=== PATIENT | female | born 1945 | race Caucasian/White ===

== ENCOUNTER → 2019-01-26 | Outpatient (CLI) | payer MEDICARE, BC | LOC: M.WC 09:42 | DX: T81.89XA Other complications of procedures, not elsewhere classified, initial encounter (principal); L89.893 Pressure ulcer of other site, stage 3; E03.9 Hypothyroidism, unspecified; I10 Essential (primary) hypertension; I25.10 Atherosclerotic heart disease of native coronary artery without angina pectoris; I25.2 Old myocardial infarction; J44.9 Chronic obstructive pulmonary disease, unspecified; Z87.891 Personal history of nicotine dependence; Y92.89 Other specified places as the place of occurrence of the external cause; Y83.8 Other surgical procedures as the cause of abnormal reaction of the patient, or of later complication, without mention of misadventure at the time of the procedure; Z95.5 Presence of coronary angioplasty implant and graft; Z79.82 Long term (current) use of aspirin ==

== ENCOUNTER → 2019-02-02 | Outpatient (CLI) | payer MEDICARE, BC | LOC: M.WC 05:14 | DX: T81.89XD Other complications of procedures, not elsewhere classified, subsequent encounter (principal); L89.892 Pressure ulcer of other site, stage 2; E03.9 Hypothyroidism, unspecified; I10 Essential (primary) hypertension; I25.2 Old myocardial infarction; I25.10 Atherosclerotic heart disease of native coronary artery without angina pectoris; J44.9 Chronic obstructive pulmonary disease, unspecified; Z87.891 Personal history of nicotine dependence; Z95.1 Presence of aortocoronary bypass graft; Z79.82 Long term (current) use of aspirin; Y83.8 Other surgical procedures as the cause of abnormal reaction of the patient, or of later complication, without mention of misadventure at the time of the procedure ==

== ENCOUNTER → 2019-02-05 | Outpatient (CLI) | payer MEDICARE, BC | LOC: M.WC 04:39 | DX: T81.89XD Other complications of procedures, not elsewhere classified, subsequent encounter (principal); L89.892 Pressure ulcer of other site, stage 2; E03.9 Hypothyroidism, unspecified; I10 Essential (primary) hypertension; I25.2 Old myocardial infarction; I25.10 Atherosclerotic heart disease of native coronary artery without angina pectoris; J44.9 Chronic obstructive pulmonary disease, unspecified; Z87.891 Personal history of nicotine dependence; Z95.5 Presence of coronary angioplasty implant and graft; Z79.82 Long term (current) use of aspirin; Y83.8 Other surgical procedures as the cause of abnormal reaction of the patient, or of later complication, without mention of misadventure at the time of the procedure ==

== ENCOUNTER → 2019-02-12 | Outpatient (CLI) | payer MEDICARE, BC | LOC: M.WC 01:34 | DX: T81.89XD Other complications of procedures, not elsewhere classified, subsequent encounter (principal); I83.015 Varicose veins of right lower extremity with ulcer other part of foot; L89.892 Pressure ulcer of other site, stage 2; L97.511 Non-pressure chronic ulcer of other part of right foot limited to breakdown of skin; L03.115 Cellulitis of right lower limb; E03.9 Hypothyroidism, unspecified; I10 Essential (primary) hypertension; I25.2 Old myocardial infarction; I25.10 Atherosclerotic heart disease of native coronary artery without angina pectoris; J44.9 Chronic obstructive pulmonary disease, unspecified; Y83.8 Other surgical procedures as the cause of abnormal reaction of the patient, or of later complication, without mention of misadventure at the time of the procedure; Z87.891 Personal history of nicotine dependence ==

== ENCOUNTER → 2019-02-15 | Outpatient (CLI) | payer MEDICARE, BC | LOC: M.WC 05:03 | DX: T81.89XD Other complications of procedures, not elsewhere classified, subsequent encounter (principal); I83.015 Varicose veins of right lower extremity with ulcer other part of foot; L89.892 Pressure ulcer of other site, stage 2; L03.115 Cellulitis of right lower limb; E03.9 Hypothyroidism, unspecified; I10 Essential (primary) hypertension; I25.2 Old myocardial infarction; I25.10 Atherosclerotic heart disease of native coronary artery without angina pectoris; J44.9 Chronic obstructive pulmonary disease, unspecified; Z87.891 Personal history of nicotine dependence; Y83.8 Other surgical procedures as the cause of abnormal reaction of the patient, or of later complication, without mention of misadventure at the time of the procedure ==

== ENCOUNTER → 2019-02-22 | Outpatient (CLI) | payer MEDICARE, BC | LOC: M.WC 05:28 | DX: T81.89XD Other complications of procedures, not elsewhere classified, subsequent encounter (principal); L89.892 Pressure ulcer of other site, stage 2; L84 Corns and callosities; I10 Essential (primary) hypertension; E03.9 Hypothyroidism, unspecified; I25.2 Old myocardial infarction; I25.10 Atherosclerotic heart disease of native coronary artery without angina pectoris; J44.9 Chronic obstructive pulmonary disease, unspecified; Z87.891 Personal history of nicotine dependence; Y83.8 Other surgical procedures as the cause of abnormal reaction of the patient, or of later complication, without mention of misadventure at the time of the procedure ==

== ENCOUNTER → 2019-03-01 | Outpatient (CLI) | payer MEDICARE, BC | LOC: M.WC 04:53 | DX: T81.89XD Other complications of procedures, not elsewhere classified, subsequent encounter (principal); I83.015 Varicose veins of right lower extremity with ulcer other part of foot; L89.892 Pressure ulcer of other site, stage 2; L97.512 Non-pressure chronic ulcer of other part of right foot with fat layer exposed; E03.9 Hypothyroidism, unspecified; I10 Essential (primary) hypertension; I25.2 Old myocardial infarction; I25.10 Atherosclerotic heart disease of native coronary artery without angina pectoris; J44.9 Chronic obstructive pulmonary disease, unspecified; Z87.891 Personal history of nicotine dependence; Y83.8 Other surgical procedures as the cause of abnormal reaction of the patient, or of later complication, without mention of misadventure at the time of the procedure ==

== ENCOUNTER → 2019-03-08 | Outpatient (CLI) | payer OTHER, MEDICARE | LOC: M.WC 01:52 | DX: T81.89XD Other complications of procedures, not elsewhere classified, subsequent encounter (principal); I83.015 Varicose veins of right lower extremity with ulcer other part of foot; L89.892 Pressure ulcer of other site, stage 2; L97.512 Non-pressure chronic ulcer of other part of right foot with fat layer exposed; E03.9 Hypothyroidism, unspecified; I10 Essential (primary) hypertension; I25.2 Old myocardial infarction; I25.10 Atherosclerotic heart disease of native coronary artery without angina pectoris; J44.9 Chronic obstructive pulmonary disease, unspecified; Z87.891 Personal history of nicotine dependence; Y83.8 Other surgical procedures as the cause of abnormal reaction of the patient, or of later complication, without mention of misadventure at the time of the procedure ==

== ENCOUNTER → 2019-03-15 | Outpatient (CLI) | payer MEDICARE, BC | LOC: M.WC 10:24 | DX: T81.89XD Other complications of procedures, not elsewhere classified, subsequent encounter (principal); L89.890 Pressure ulcer of other site, unstageable; S90.811A Abrasion, right foot, initial encounter; I83.90 Asymptomatic varicose veins of unspecified lower extremity; I10 Essential (primary) hypertension; I25.2 Old myocardial infarction; I25.10 Atherosclerotic heart disease of native coronary artery without angina pectoris; E03.9 Hypothyroidism, unspecified; J44.9 Chronic obstructive pulmonary disease, unspecified; Z87.891 Personal history of nicotine dependence; V89.2XXA Person injured in unspecified motor-vehicle accident, traffic, initial encounter; Y93.89 Activity, other specified; Y92.89 Other specified places as the place of occurrence of the external cause; Y99.8 Other external cause status; Y83.8 Other surgical procedures as the cause of abnormal reaction of the patient, or of later complication, without mention of misadventure at the time of the procedure ==

== ENCOUNTER → 2019-03-22 | Outpatient (CLI) | payer MEDICARE, BC | LOC: M.WC 04:07 | DX: T81.89XD Other complications of procedures, not elsewhere classified, subsequent encounter (principal); S90.811D Abrasion, right foot, subsequent encounter; L89.890 Pressure ulcer of other site, unstageable; I83.90 Asymptomatic varicose veins of unspecified lower extremity; E03.9 Hypothyroidism, unspecified; I10 Essential (primary) hypertension; I25.2 Old myocardial infarction; I25.10 Atherosclerotic heart disease of native coronary artery without angina pectoris; J44.9 Chronic obstructive pulmonary disease, unspecified; Z87.891 Personal history of nicotine dependence; V89.2XXD Person injured in unspecified motor-vehicle accident, traffic, subsequent encounter; Y83.8 Other surgical procedures as the cause of abnormal reaction of the patient, or of later complication, without mention of misadventure at the time of the procedure ==

== ENCOUNTER → 2019-03-29 | Outpatient (CLI) | payer MEDICARE, BC | LOC: M.WC 01:52 | DX: T81.89XD Other complications of procedures, not elsewhere classified, subsequent encounter (principal); L89.892 Pressure ulcer of other site, stage 2; I83.90 Asymptomatic varicose veins of unspecified lower extremity; E03.9 Hypothyroidism, unspecified; I10 Essential (primary) hypertension; I25.2 Old myocardial infarction; I25.10 Atherosclerotic heart disease of native coronary artery without angina pectoris; J44.9 Chronic obstructive pulmonary disease, unspecified; Z87.891 Personal history of nicotine dependence; Y83.8 Other surgical procedures as the cause of abnormal reaction of the patient, or of later complication, without mention of misadventure at the time of the procedure ==

== ENCOUNTER → 2019-04-05 | Outpatient (CLI) | payer MEDICARE, BC | LOC: M.WC 04:12 | DX: T81.89XD Other complications of procedures, not elsewhere classified, subsequent encounter (principal); L89.892 Pressure ulcer of other site, stage 2; I83.90 Asymptomatic varicose veins of unspecified lower extremity; E03.9 Hypothyroidism, unspecified; I10 Essential (primary) hypertension; I25.10 Atherosclerotic heart disease of native coronary artery without angina pectoris; I25.2 Old myocardial infarction; J44.9 Chronic obstructive pulmonary disease, unspecified; Z87.891 Personal history of nicotine dependence; Y83.8 Other surgical procedures as the cause of abnormal reaction of the patient, or of later complication, without mention of misadventure at the time of the procedure ==

== ENCOUNTER → 2019-04-12 | Outpatient (CLI) | payer MEDICARE, BC | LOC: M.WC 04:23 | DX: T81.89XD Other complications of procedures, not elsewhere classified, subsequent encounter (principal); L89.892 Pressure ulcer of other site, stage 2; I83.90 Asymptomatic varicose veins of unspecified lower extremity; E03.9 Hypothyroidism, unspecified; I25.10 Atherosclerotic heart disease of native coronary artery without angina pectoris; I25.2 Old myocardial infarction; I10 Essential (primary) hypertension; J44.9 Chronic obstructive pulmonary disease, unspecified; Z87.891 Personal history of nicotine dependence; Y83.8 Other surgical procedures as the cause of abnormal reaction of the patient, or of later complication, without mention of misadventure at the time of the procedure ==

== ENCOUNTER → 2019-04-19 | Outpatient (CLI) | payer MEDICARE, BC | LOC: M.WC 04:36 | DX: T81.89XD Other complications of procedures, not elsewhere classified, subsequent encounter (principal); L89.892 Pressure ulcer of other site, stage 2; I10 Essential (primary) hypertension; I83.90 Asymptomatic varicose veins of unspecified lower extremity; E03.9 Hypothyroidism, unspecified; I25.2 Old myocardial infarction; I25.10 Atherosclerotic heart disease of native coronary artery without angina pectoris; J44.9 Chronic obstructive pulmonary disease, unspecified; Z87.891 Personal history of nicotine dependence; Y83.8 Other surgical procedures as the cause of abnormal reaction of the patient, or of later complication, without mention of misadventure at the time of the procedure ==